=== PATIENT | female | born 1965 | race Caucasian/White ===

== ENCOUNTER 2016-12-19 07:11 | Day surgery (SDC) | payer MEDICAID ==
[2016-12-19 07:46] VITALS: BMI 27.3
[2016-12-19] MEDS ORDERED: Lidocaine Hydrochloride 5 ML INJ ONE (09:02)
[2016-12-19] MEDS ORDERED: Propofol 10 mg/ml Inj (20 ML) ONE (09:02)
[2016-12-19 10:05] VITALS: TEMP 97.8
[2016-12-19 10:48] VITALS: BP 102/62; PULSE 62; RESP 15; O2SAT 100
== END 2016-12-19 10:39 | disposition home or self-care (01) ==
LOC: C.ENDO 07:11
PROVIDERS: ATTEND Internal Medicine Gastroenterology
DX: K29.50 Unspecified chronic gastritis without bleeding (principal); Z12.11 Encounter for screening for malignant neoplasm of colon; B96.81 Helicobacter pylori [H. pylori] as the cause of diseases classified elsewhere; K29.80 Duodenitis without bleeding; K64.1 Second degree hemorrhoids
CPT/HCPCS: 43239; 45378; 84703; 88305; 88313; 88342; J2704; J3010; J7040